=== PATIENT | male | born 1980 | race Caucasian/White ===

== ENCOUNTER 2018-12-22 10:35 | Inpatient (IN) | payer OTHER ==
[2018-12-22 11:13] VITALS: BMI 18.3
--- NOTE | 2018-12-22 12:42 | HP ---
CIWA Score Nausea/Vomitin-Mild Nausea/No Vomiting Muscle Tremors: 2 Anxiety: 1-Mildly Anxious Agitation: 3 Paroxysmal Sweats: 1-Minimal Palms Moist Orientation: 0-Oriented Tacttile Disturbances: 3-Moderate Itch/Numb/Burn Auditory Disturbances: 0-None Visual Disturbances: 0-None Headache: 2-Mild CIWA-Ar Total Score: 13 - Admission Criteria OASAS Guidelines: Admission for Medically Managed Detox: Requires at least one of the followin. CIWA greater than 12 2. Seizures within the past 24 hours 3. Delirium tremens within the past 24 hours 4. Hallucinations within the past 24 hours 5. Acute intervention needed for co occurring medical disorder 6. Acute intervention needed for co occurring psychiatric disorder 7. Severe withdrawal that cannot be handled at a lower level of care (continued vomiting, continued diarrhea, abnormal vital signs) requiring intravenous medication and/or fluids 8. Admission ROS [facility] Chief Complaint: detox from etoh Allergies/Adverse Reactions: Allergies Allergy/AdvReac Type Severity Reaction Status Date / Time No Known Allergies Allergy Verified 12/22/18 11:07 History of Present Illness: Mr. Fink is a 38yo male with PMH of myocarditis, neuropathy, and AUD who presents for detox from alcohol. He reports drinking 2 gallons of vodka a week since 2014 after father . He reports hx of blackouts, denies seizures , 7am last drink today. He has been to detox twice, last being a little over a year ago. 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 denies: Diarrhea, Vomiting : reports: No Symptoms Reported Musculoskeletal: reports: No Symptoms Reported Integumentary: reports: No Symptoms Reported Neuro: reports: Headache. denies: Dizziness Endocrine: reports: No Symptoms Reported Hematology: reports: No Symptoms Reported Psychiatric: reports: Judgement Intact, Mood/Affect Appropiate, Orientated x3 Patient History - Patient Medical History Hx Anemia: No Hx Asthma: No Hx Cardiac Disorders: Yes (myocarditis 2004) Hx Congestive Heart Failure: No Hx Hypertension: No Hx Hypercholesterolemia: No Hx Diabetes: No Hx Human Immunodeficiency Virus (HIV): No Hx Depression: No - Patient Surgical History Past Surgical History: Yes Hx Cardiac Surgery: Yes (LVAD placement and removal 2004) - Smoking Cessation Smoking history: Current every day smoker Have you smoked in the past 12 months: Yes Cigars Per Day: 5 Initiated information on smoking cessation: Yes 'Breaking Loose' booklet given: 12/22/18 - Substances abused Alcohol Substance route: Oral Frequency: Daily Amount used: 1/2 gallon vodka Age of first use: 17 Date of last use: 12/22/18 Family Disease History - Family Disease History Family History: Denies Admission Physical Exam [facility] - Vital Signs Vital Signs: Vital Signs - 24 hr 12/22/18 12/22/18 11:02 11:46 Temperature 98.0 F 98.0 F Pulse Rate 98 H 98 H Respiratory 20 20 Rate Blood Pressure 128/93 128/93 - Physical General Appearance: Yes: No Apparent Distress, Alcohol on Breath HEENTM: Yes: Hearing grossly Normal, Normocephalic, MICA Respiratory: Yes: Lungs Clear, No Respiratory Distress Neck: Yes: Within Normal Limits Cardiology: Yes: Regular Rhythm, Regular Rate. No: Murmur Abdominal: Yes: Normal Bowel Sounds, Non Tender Back: Yes: Normal Inspection Musculoskeletal: Yes: full range of Motion Extremities: Yes: Normal Range of Motion Neurological: Yes: park superintendent II-XII NML intact, Fully Oriented, Alert, Motor Strength 5/5, Normal Mood/Affect Integumentary: Yes: Within Normal Limits - Diagnostic (1) History of myocarditis Current Visit: Yes Status: Resolved (2) Alcohol use disorder Current Visit: Yes Status: Chronic (3) Neuropathy Current Visit: Yes Status: Acute Cleared for Admission [facility] - Detox or Rehab [facility] Level of Care: Medically Managed Breathalyzer - Breathalyzer Breathalyzer: 0.220 Urine Drug Screen - Test Device Lot number: [id number] Expiration date: 09/29/20 - Control Is test valid?: Yes - Results Drug screen NEGATIVE: Yes Inpatient Rehab Admission - Rehab Decision to Admit Inpatient rehab admission?: No
[2018-12-22] MEDS ORDERED: MENTHOL/PHENOL 1 EACH UD MM PRN (13:15)
[2018-12-22] MEDS ORDERED: NICOTINE POLACRILEX 2 MG GUM BUC PRN (13:15)
[2018-12-22] MEDS ORDERED: ACETAMINOPHEN 325 MG TABLET (FP) PO PRN ×2 (13:15)
[2018-12-22] MEDS ORDERED: MAGNESIUM HYDROX 2400MG/30ML ORAL SUSPENSION 30 ML CUP PO PRN (13:15)
[2018-12-22] MEDS ORDERED: MAGNESIUM CITRATE 300 ML BOTTLE PO PRN (13:15)
[2018-12-22] MEDS ORDERED: ONDANSETRON *ODT* 4 MG TABLET SL PRN (13:15)
[2018-12-22] MEDS ORDERED: chlordiazePOXIDE HCL 25 MG CAPSULE PO PRN (13:15)
[2018-12-22] MEDS ORDERED: IBUPROFEN 400 MG TABLET (FP) PO PRN (13:15)
[2018-12-22] MEDS ORDERED: BISMUTH SUBSALICYLATE 262 MG/15 ML BTL PO PRN (13:15)
[2018-12-22] MEDS ORDERED: hydrOXYzine PAMOATE 25 MG CAPSULE (FP) PO PRN (13:15)
[2018-12-22] MEDS ORDERED: MAG HYDROX/AL HYDROX/SIMETH 30 ML UNIT-DOSE CUP PO PRN (13:15)
--- NOTE | 2018-12-22 13:42 | PN ---
Teaching Attending Note Name of Resident: Valorie Kang ATTENDING PHYSICIAN STATEMENT I saw and evaluated the patient. I reviewed the resident's note and discussed the case with the resident. I agree with the resident's findings and plan as documented. SUBJECTIVE: this 38 years old male with alcohol dependence,history of myocarditis ,had heart surgery in 2004,admitted at [facility], on waiting list for heart transplantation but fully recover,last detox [facility] [place] in 2015,last seen in [facility] last night OBJECTIVE: withdrawal signs and symptom Vital Signs Temperature 98.0 F 12/22/18 11:46 Pulse Rate 98 H 12/22/18 11:46 Respiratory Rate 20 12/22/18 11:46 Blood Pressure 128/93 12/22/18 11:46 O2 Sat by Pulse Oximetry (%) ASSESSMENT AND PLAN: this patient need inpatient detox from alcohol,medically managed detox,librium regimen,plan for rehab after detox
[2018-12-22] MEDS ORDERED: chlordiazePOXIDE HCL 25 MG CAPSULE PO ONE (14:20)
[2018-12-22] MEDS: metoPROLOL SUCCINATE 25 MG TAB.SR.24H (FP) PO SCH (14:44)
[2018-12-22] MEDS: PANTOPRAZOLE 20 MG TABLET (FP) PO SCH (14:45)
[2018-12-22 17:02] LABS: HEMATOCRIT 47.1 % (35.4-49); HEMOGLOBIN 15.6 GM/dL (11.7-16.9); MCH 33.5 pg (25.7-33.7); MCHC 33.1 g/dl (32.0-35.9); MEAN CELL VOLUME 101.3 fl (80-96); PLATELET COUNT 269 K/MM3 (134-434); RBC 4.65 M/mm3 (4.00-5.60); RDW 14.7 % (11.9-15.9); WHITE BLOOD COUNT 2.7 K/mm3 (4.0-10.0)
[2018-12-22 17:21] LABS: ALBUMIN 4.5 g/dl (3.4-5.0); BILIRUBIN,TOTAL 1.6 mg/dL (0.2-1); BLOOD UREA NITROGEN 6.5 mg/dL (7-18); CALCIUM 9.5 mg/dL (8.5-10.1); TOT PROT 7.8 g/dl (6.4-8.2)
[2018-12-22] MEDS: chlordiazePOXIDE HCL 25 MG CAPSULE PO SCH ×2 (17:38→23:35)
[2018-12-22] MEDS: THIAMINE HCL 100 MG TABLET (FP) PO SCH (23:35)
[2018-12-23] MEDS: chlordiazePOXIDE HCL 25 MG CAPSULE PO SCH ×2 (05:55→10:29)
[2018-12-23] MEDS: PRENATAL VITAMINS W/ FOLIC ACID TABLET (FP) PO SCH (10:28)
[2018-12-23] MEDS: PANTOPRAZOLE 20 MG TABLET (FP) PO SCH (10:28)
[2018-12-23] MEDS: metoPROLOL SUCCINATE 25 MG TAB.SR.24H (FP) PO SCH (10:28)
--- NOTE | 2018-12-23 14:52 | PN ---
[facility] CIWA - CIWA Score Nausea/Vomitin-No Nausea/No Vomiting Muscle Tremors: 2 Anxiety: 3 Agitation: 2 Paroxysmal Sweats: 3 Orientation: 0-Oriented Tacttile Disturbances: 1-Very Mild Itch/Numbness Auditory Disturbances: 0-None Visual Disturbances: 3-Moderate Sensitivity Headache: 0-None Present CIWA-Ar Total Score: 14 S Progress Note (SOAP) Subjective: Anxious, sweating, Fatigue, Tremors. Objective: PATIENT A & O X 3, OBSERVED AMBULATING ON UNIT UNASSISTED. IN NO ACUTE DISTRESS. 12/23/18 14:52 Vital Signs Temperature 95.9 F L 12/23/18 13:10 Pulse Rate 97 H 12/23/18 13:10 Respiratory Rate 16 12/23/18 13:10 Blood Pressure 136/94 12/23/18 13:10 O2 Sat by Pulse Oximetry (%) Laboratory Tests 12/22/18 12/22/18 12/22/18 14:00 14:00 14:00 WBC 2.7 L RBC 4.65 Hgb 15.6 Hct 47.1 MCV 101.3 H MCH 33.5 MCHC 33.1 RDW 14.7 Plt Count 269 MPV 8.0 Sodium 142 Potassium 4.0 Chloride 100 Carbon Dioxide 32 Anion Gap 10 BUN 6.5 L Creatinine 1.0 Est GFR (CKD-EPI)AfAm 110.94 Est GFR (CKD-EPI)NonAf 95.72 Random Glucose 81 Calcium 9.5 Total Bilirubin 1.6 H AST 365 H ALT 205 H Alkaline Phosphatase 86 Total Protein 7.8 Albumin 4.5 RPR Titer Nonreactive HIV 1&2 Ag/Ab, 4th Gen 12/22/18 14:00 WBC RBC Hgb Hct MCV MCH MCHC RDW Plt Count MPV Sodium Potassium Chloride Carbon Dioxide Anion Gap BUN Creatinine Est GFR (CKD-EPI)AfAm Est GFR (CKD-EPI)NonAf Random Glucose Calcium Total Bilirubin AST ALT Alkaline Phosphatase Total Protein Albumin RPR Titer HIV 1&2 Ag/Ab, 4th Gen Non reactive LABS NOTED. RESULTS OF DETOX ADMISSION QFT /TB TEST PENDING. 12/23/18 14:59 Assessment: 12/23/18 14:56 WITHDRAWAL SYMPTOMS. ELEVATED AST LEVELS. ELEVATED ALT LEVEL. HYPERBILIRUBINEMIA. Plan: CONTINUE DETOX. INCREASE DAILY PO WATER INTAKE. DUE TO SIGNIFICANTLY ELEVATED AST AND ALT LEVELS NOTED NO DETOX [facility] ASSESSMENT, CHANGE FROM LIBRIUM DETOX MEDICATION PROTOCOL TO ATIVAN DETOX MEDICATION PROTOCOL. HFP ORDERED FOR TOMORROW AM TO SEE IF ANY CHANGE IN AST AND ALT LEVELS AND IN TOTAL BILIRUBIN LEVEL.
[2018-12-23] MEDS ORDERED: LORazepam 1 MG TABLET PO PRN (14:54)
[2018-12-23] MEDS: LORazepam 2 MG TABLET PO SCH ×2 (18:02→22:32)
[2018-12-23] MEDS: MELATONIN 5 MG TABLETS PO PRN (22:32)
[2018-12-23] MEDS: THIAMINE HCL 100 MG TABLET (FP) PO SCH (22:32)
[2018-12-24] MEDS ORDERED: chlordiazePOXIDE HCL 25 MG CAPSULE PO SCH (05:00)
[2018-12-24] MEDS: LORazepam 2 MG TABLET PO SCH ×4 (06:06→22:28)
[2018-12-24 09:41] LABS: ALBUMIN 3.5 g/dl (3.4-5.0); BILIRUBIN,DIRECT 0.6 mg/dL (0.0-0.2); BILIRUBIN,TOTAL 2.8 mg/dL (0.2-1)
[2018-12-24] MEDS: metoPROLOL SUCCINATE 25 MG TAB.SR.24H (FP) PO SCH (10:39)
[2018-12-24] MEDS: PANTOPRAZOLE 20 MG TABLET (FP) PO SCH (10:39)
[2018-12-24] MEDS: PRENATAL VITAMINS W/ FOLIC ACID TABLET (FP) PO SCH (10:39)
--- NOTE | 2018-12-24 11:52 | PN ---
[facility] CIWA - CIWA Score Nausea/Vomitin-Mild Nausea/No Vomiting Muscle Tremors: 3 Anxiety: 3 Agitation: 3 Paroxysmal Sweats: 2 Orientation: 0-Oriented Tacttile Disturbances: 0-None Auditory Disturbances: 0-None Visual Disturbances: 0-None Headache: 0-None Present CIWA-Ar Total Score: 12 S Progress Note (SOAP) Subjective: 38 years old male admitted on 12/22/18 for acute alcohol withdrawal sx management doing well with ativan detox regimen due to ast elevation feeling dizziness when change position that 2004 had open heart surgery for endocarditis with unknow cause encourage change position slowly Objective: 12/24/18 11:54 Vital Signs Temperature 97.8 F 12/24/18 09:22 Pulse Rate 90 12/24/18 09:22 Respiratory Rate 20 12/24/18 09:22 Blood Pressure 96/69 12/24/18 09:22 O2 Sat by Pulse Oximetry (%) Laboratory Last Values WBC 2.7 K/mm3 (4.0-10.0) L 12/22/18 14:00 RBC 4.65 M/mm3 (4.00-5.60) 12/22/18 14:00 Hgb 15.6 GM/dL (11.7-16.9) 12/22/18 14:00 Hct 47.1 % (35.4-49) 12/22/18 14:00 MCV 101.3 fl (80-96) H 12/22/18 14:00 MCH 33.5 pg (25.7-33.7) 12/22/18 14:00 MCHC 33.1 g/dl (32.0-35.9) 12/22/18 14:00 RDW 14.7 % (11.9-15.9) 12/22/18 14:00 Plt Count 269 K/MM3 (134-434) 12/22/18 14:00 MPV 8.0 fl (7.5-11.1) 12/22/18 14:00 Sodium 142 mmol/L (136-145) 12/22/18 14:00 Potassium 4.0 mmol/L (3.5-5.1) 12/22/18 14:00 Chloride 100 mmol/L (98-107) 12/22/18 14:00 Carbon Dioxide 32 mmol/L (21-32) 12/22/18 14:00 Anion Gap 10 MMOL/L (8-16) 12/22/18 14:00 BUN 6.5 mg/dL (7-18) L 12/22/18 14:00 Creatinine 1.0 mg/dL (0.55-1.3) 12/22/18 14:00 Est GFR (CKD-EPI)AfAm 110.94 12/22/18 14:00 Est GFR (CKD-EPI)NonAf 95.72 12/22/18 14:00 Random Glucose 81 mg/dL (74-106) 12/22/18 14:00 Calcium 9.5 mg/dL (8.5-10.1) 12/22/18 14:00 Total Bilirubin 2.8 mg/dL (0.2-1) H 12/24/18 07:45 Direct Bilirubin 0.6 mg/dL (0.0-0.2) H 12/24/18 07:45 AST 184 U/L (15-37) H 12/24/18 07:45 ALT 139 U/L (13-61) H 12/24/18 07:45 Alkaline Phosphatase 67 U/L (45-117) 12/24/18 07:45 Total Protein 6.0 g/dl (6.4-8.2) L 12/24/18 07:45 Albumin 3.5 g/dl (3.4-5.0) 12/24/18 07:45 RPR Titer Nonreactive (NONREACTIVE) 12/22/18 14:00 HIV 1&2 Ag/Ab, 4th Gen Non reactive (Non Reactive) 12/22/18 14:00 lab noted low wbc ast elevation repeat 12/26/18 12/24/18 11:57 encourage oral fluid Assessment: 12/24/18 11:56 alcohol withdrawal sx Plan: continue ativan detox regimen
[2018-12-24] MEDS ORDERED: LORazepam 0.5 MG TABLET PO PRN (15:00)
[2018-12-24] MEDS: THIAMINE HCL 100 MG TABLET (FP) PO SCH (22:29)
[2018-12-24] MEDS: MELATONIN 5 MG TABLETS PO PRN (22:29)
[2018-12-25] MEDS ORDERED: chlordiazePOXIDE HCL 10 MG CAPSULE PO PRN
[2018-12-25] MEDS ORDERED: chlordiazePOXIDE HCL 10 MG CAPSULE PO SCH (05:00)
[2018-12-25] MEDS: LORazepam 1 MG TABLET PO SCH ×4 (06:12→22:05)
[2018-12-25] MEDS: PANTOPRAZOLE 20 MG TABLET (FP) PO SCH (10:38)
[2018-12-25] MEDS: metoPROLOL SUCCINATE 25 MG TAB.SR.24H (FP) PO SCH (10:38)
[2018-12-25] MEDS: PRENATAL VITAMINS W/ FOLIC ACID TABLET (FP) PO SCH (10:38)
--- NOTE | 2018-12-25 13:04 | EKG ---
Test Reason : Blood Pressure : / mmHG Vent. Rate : 089 BPM Atrial Rate : 089 BPM P-R Int : 160 ms QRS Dur : 104 ms QT Int : 376 ms P-R-T Axes : 079 -79 062 degrees QTc Int : 457 ms NORMAL SINUS RHYTHM BIATRIAL ENLARGEMENT LEFT ANTERIOR FASCICULAR BLOCK POSSIBLE INFERIOR INFARCT , AGE UNDETERMINED POSSIBLE ANTERIOR INFARCT , AGE UNDETERMINED ABNORMAL ECG NO PREVIOUS ECGS AVAILABLE Confirmed by CORIN MCCORMICK, NIRU ([id number]) on 12/25/2018 1:04:03 PM Referred By: Confirmed By:NIRU COOMBS MD
--- NOTE | 2018-12-25 13:34 | PN ---
S CIWA - CIWA Score Nausea/Vomitin-Mild Nausea/No Vomiting Muscle Tremors: 2 Anxiety: 1-Mildly Anxious Agitation: 1-Slight > Activity Paroxysmal Sweats: 1-Minimal Palms Moist Orientation: 1-Uncertain about Date Tacttile Disturbances: 0-None Auditory Disturbances: 0-None Visual Disturbances: 0-None Headache: 0-None Present CIWA-Ar Total Score: 7 [facility] Progress Note (SOAP) Subjective: pt without complaints, doing well with detox O: Vital Signs - 24 hr 12/24/18 12/24/18 12/24/18 13:54 17:40 21:44 Temperature 97.3 F L 98.9 F 98.4 F Pulse Rate 84 95 H 103 H Respiratory 18 6 L 18 Rate Blood Pressure 111/80 115/75 111/81 12/25/18 12/25/18 12/25/18 00:30 03:30 06:16 Temperature 98 F Pulse Rate 85 Respiratory 18 18 18 Rate Blood Pressure 109/74 12/25/18 09:22 Temperature 97.8 F Pulse Rate 80 Respiratory 18 Rate Blood Pressure 105/79 Laboratory Tests 12/22/18 12/22/18 12/22/18 14:00 14:00 14:00 WBC 2.7 L RBC 4.65 Hgb 15.6 Hct 47.1 MCV 101.3 H MCH 33.5 MCHC 33.1 RDW 14.7 Plt Count 269 MPV 8.0 Sodium 142 Potassium 4.0 Chloride 100 Carbon Dioxide 32 Anion Gap 10 BUN 6.5 L Creatinine 1.0 Est GFR (CKD-EPI)AfAm 110.94 Est GFR (CKD-EPI)NonAf 95.72 Random Glucose 81 Calcium 9.5 Total Bilirubin 1.6 H Direct Bilirubin AST 365 H ALT 205 H Alkaline Phosphatase 86 Total Protein 7.8 Albumin 4.5 RPR Titer Nonreactive HIV 1&2 Ag/Ab, 4th Gen 12/22/18 12/24/18 14:00 07:45 WBC RBC Hgb Hct MCV MCH MCHC RDW Plt Count MPV Sodium Potassium Chloride Carbon Dioxide Anion Gap BUN Creatinine Est GFR (CKD-EPI)AfAm Est GFR (CKD-EPI)NonAf Random Glucose Calcium Total Bilirubin 2.8 H Direct Bilirubin 0.6 H AST 184 H ALT 139 H Alkaline Phosphatase 67 Total Protein 6.0 L Albumin 3.5 RPR Titer HIV 1&2 Ag/Ab, 4th Gen Non reactive increased liver enzymes repeat pending alert and oriented a/p: continue with ativan detox- increased liver enzymes- monitor pt doing well
[2018-12-25] MEDS: THIAMINE HCL 100 MG TABLET (FP) PO SCH (22:05)
[2018-12-25] MEDS: CYCLOBENZAPRINE HCL 5 MG TABLET PO PRN (22:05)
[2018-12-26] MEDS ORDERED: chlordiazePOXIDE HCL 10 MG CAPSULE PO SCH (05:00)
[2018-12-26] MEDS: LORazepam 0.5 MG TABLET PO SCH ×4 (05:46→22:12)
[2018-12-26] MEDS: metoPROLOL SUCCINATE 25 MG TAB.SR.24H (FP) PO SCH (10:26)
[2018-12-26] MEDS: PANTOPRAZOLE 20 MG TABLET (FP) PO SCH (10:26)
[2018-12-26] MEDS: PRENATAL VITAMINS W/ FOLIC ACID TABLET (FP) PO SCH (10:26)
[2018-12-26 12:01] LABS: BASO % 0.5 % (0-2.0); EOS % 5.2 % (0-4.5); HEMATOCRIT 39.5 % (35.4-49); HEMOGLOBIN 13.1 GM/dL (11.7-16.9); LYMPH % 31.9 % (8-40); MCH 33.4 pg (25.7-33.7); MCHC 33.3 g/dl (32.0-35.9); MEAN CELL VOLUME 100.5 fl (80-96); MEAN PLT VOLUME 9.2 fl (7.5-11.1); MONO % 15.5 % (3.8-10.2); NEUT % 46.9 % (42.8-82.8); RBC 3.93 M/mm3 (4.00-5.60); RDW 14.2 % (11.9-15.9); WHITE BLOOD COUNT 4.7 K/mm3 (4.0-10.0)
[2018-12-26 12:18] LABS: PLATELET COUNT 196 K/MM3 (134-434)
--- NOTE | 2018-12-26 13:16 | PN ---
S CIWA - CIWA Score Nausea/Vomitin Muscle Tremors: 2 Anxiety: 2 Agitation: 2 Paroxysmal Sweats: 1-Minimal Palms Moist Orientation: 0-Oriented Tacttile Disturbances: 1-Very Mild Itch/Numbness Auditory Disturbances: 0-None Visual Disturbances: 0-None Headache: 1-Very Mild CIWA-Ar Total Score: 11 S Progress Note (SOAP) Subjective: alert,irritable,anxious,interrupted sleep Objective: 12/26/18 13:14 Vital Signs Temperature 97.0 F L 12/26/18 13:05 Pulse Rate 77 12/26/18 13:05 Respiratory Rate 18 12/26/18 13:05 Blood Pressure 113/84 12/26/18 13:05 O2 Sat by Pulse Oximetry (%) 12/26/18 13:15 Abnormal Lab Results 12/26/18 12/26/18 07:30 07:30 RBC 3.93 L MCV 100.5 H Monocytes % 15.5 H Eosinophils % 5.2 H AST 91 H Assessment: 12/26/18 13:15 withdrawal symptom Plan: continue detox,ensure plus 120 mls po bid,discharge in am
[2018-12-26 16:10] LABS: ANISOCYTOSIS 1+; MACROCYTOSIS 1+; PLATELET ESTIMATE NORMAL
[2018-12-26] MEDS: THIAMINE HCL 100 MG TABLET (FP) PO SCH (22:12)
[2018-12-26] MEDS: CYCLOBENZAPRINE HCL 5 MG TABLET PO PRN (22:12)
[2018-12-27] MEDS ORDERED: LORazepam 0.5 MG TABLET PO ONE (05:00)
[2018-12-27] MEDS ORDERED: chlordiazePOXIDE HCL 10 MG CAPSULE PO ONE (05:00)
[2018-12-27 09:25] VITALS: BP 128/88; PULSE 101; TEMP 97.8
[2018-12-27] MEDS: metoPROLOL SUCCINATE 25 MG TAB.SR.24H (FP) PO SCH (10:23)
[2018-12-27] MEDS: PANTOPRAZOLE 20 MG TABLET (FP) PO SCH (10:23)
[2018-12-27] MEDS: PRENATAL VITAMINS W/ FOLIC ACID TABLET (FP) PO SCH (10:23)
--- NOTE | 2018-12-27 12:54 | DS ---
[facility] Detox Discharge Summary Admission Date: 12/22/18 Discharge Date: 12/27/18 - History Present History: Alcohol Dependence Additional Comments: 38 years old male first patient [facility] admission for detox was admitted on 12/22/18 for acute alcohol withdrawal sx management doing well with ativan detox regimen no complication throughout the detox stay alert oriented x 3 speech clearly steady gait medical history of gerd hypertension and underweight denies dizziness no nausea no vomiting extremities full range of motion - Physical Exam Results Vital Signs: Vital Signs Temperature 97.8 F 12/27/18 09:24 Pulse Rate 101 H 12/27/18 09:24 Respiratory Rate 18 12/27/18 09:24 Blood Pressure 128/88 12/27/18 09:24 O2 Sat by Pulse Oximetry (%) Pertinent Admission Physical Exam Findings: alcohol withdrawal sx Laboratory Last Values WBC 4.7 K/mm3 (4.0-10.0) 12/26/18 07:30 RBC 3.93 M/mm3 (4.00-5.60) L 12/26/18 07:30 Hgb 13.1 GM/dL (11.7-16.9) 12/26/18 07:30 Hct 39.5 % (35.4-49) D 12/26/18 07:30 MCV 100.5 fl (80-96) H 12/26/18 07:30 MCH 33.4 pg (25.7-33.7) 12/26/18 07:30 MCHC 33.3 g/dl (32.0-35.9) 12/26/18 07:30 RDW 14.2 % (11.9-15.9) 12/26/18 07:30 Plt Count 196 K/MM3 (134-434) D 12/26/18 07:30 MPV 9.2 fl (7.5-11.1) D 12/26/18 07:30 Absolute Neuts (auto) 2.2 K/mm3 (1.5-8.0) 12/26/18 07:30 Neutrophils % 46.9 % (42.8-82.8) 12/26/18 07:30 Neutrophils % (Manual) 50.5 % (42.8-82.8) 12/26/18 07:30 Band Neutrophils % 1.0 % 12/26/18 07:30 Lymphocytes % 31.9 % (8-40) 12/26/18 07:30 Lymphocytes % (Manual) 29.3 % (8-40) 12/26/18 07:30 Monocytes % 15.5 % (3.8-10.2) H 12/26/18 07:30 Monocytes % (Manual) 15 % (3.8-10.2) H 12/26/18 07:30 Eosinophils % 5.2 % (0-4.5) H 12/26/18 07:30 Eosinophils % (Manual) 4.0 % (0-4.5) 12/26/18 07:30 Basophils % 0.5 % (0-2.0) 12/26/18 07:30 Basophils % (Manual) 0.0 % (0-2.0) 12/26/18 07:30 Myelocytes % (Man) 0 % (0-2) 12/26/18 07:30 Promyelocytes % (Man) 0 % (0-2) 12/26/18 07:30 Blast Cells % (Manual) 0 % (0-0) 12/26/18 07:30 Nucleated RBC % 0 % (0-0) 12/26/18 07:30 Metamyelocytes 0 % (0-2) 12/26/18 07:30 Hypochromia 0 12/26/18 07:30 Platelet Estimate Normal 12/26/18 07:30 Polychromasia 0 12/26/18 07:30 Poikilocytosis 0 12/26/18 07:30 Anisocytosis 1+ 12/26/18 07:30 Microcytosis 0 12/26/18 07:30 Macrocytosis 1+ 12/26/18 07:30 Sodium 142 mmol/L (136-145) 12/22/18 14:00 Potassium 4.0 mmol/L (3.5-5.1) 12/22/18 14:00 Chloride 100 mmol/L (98-107) 12/22/18 14:00 Carbon Dioxide 32 mmol/L (21-32) 12/22/18 14:00 Anion Gap 10 MMOL/L (8-16) 12/22/18 14:00 BUN 6.5 mg/dL (7-18) L 12/22/18 14:00 Creatinine 1.0 mg/dL (0.55-1.3) 12/22/18 14:00 Est GFR (CKD-EPI)AfAm 110.94 12/22/18 14:00 Est GFR (CKD-EPI)NonAf 95.72 12/22/18 14:00 Random Glucose 81 mg/dL (74-106) 12/22/18 14:00 Calcium 9.5 mg/dL (8.5-10.1) 12/22/18 14:00 Total Bilirubin 2.8 mg/dL (0.2-1) H 12/24/18 07:45 Direct Bilirubin 0.6 mg/dL (0.0-0.2) H 12/24/18 07:45 AST 91 U/L (15-37) H 12/26/18 07:30 ALT 139 U/L (13-61) H 12/24/18 07:45 Alkaline Phosphatase 67 U/L (45-117) 12/24/18 07:45 Total Protein 6.0 g/dl (6.4-8.2) L 12/24/18 07:45 Albumin 3.5 g/dl (3.4-5.0) 12/24/18 07:45 RPR Titer Nonreactive (NONREACTIVE) 12/22/18 14:00 HIV 1&2 Ag/Ab, 4th Gen Non reactive (Non Reactive) 12/22/18 14:00 TB (QFT) Incubation (.) 12/22/18 14:00 TB Test (QFT) Nil 0.26 IU/mL (.) 12/22/18 14:00 TB Test (QFT) Mitogen >10.00 IU/mL (.) 12/22/18 14:00 TB Test (QFT) Antigen 0.18 IU/mL (.) 12/22/18 14:00 TB Test (QFT) Negative (Negative) 12/22/18 14:00 TB Positive Criteria (.) 12/22/18 14:00 lab noted - Treatment Hospital Course: Detox Protocol Followed, Detoxed Safely, Responded well, Discharged Condition Good, Rehab Referral Accepted Patient has Accepted [facility] Referral [facility] - Medication Discharge Medications: Ambulatory Orders Cyclobenzaprine HCl 5 mg PO TID PRN 12/22/18 Metoprolol Succinate [Toprol Xl] 25 mg PO DAILY 12/22/18 Omeprazole 40 mg PO DAILY 12/22/18 - Diagnosis (1) Hypertension Status: Chronic Qualifiers: Hypertension type: essential hypertension Qualified Code(s): I10 - Essential (primary) hypertension (2) GERD (gastroesophageal reflux disease) Status: Chronic Qualifiers: Esophagitis presence: without esophagitis Qualified Code(s): K21.9 - Gastro -esophageal reflux disease without esophagitis (3) Underweight Status: Chronic (4) Alcohol use disorder Status: Acute - AMA Did Patient Leave Against Medical Advice: No CIWA Score - CIWA Score Nausea/Vomitin-Mild Nausea/No Vomiting Muscle Tremors: 1-None Visible, but [place] Anxiety: 1-Mildly Anxious Agitation: 1-Slight > Activity Paroxysmal Sweats: 1-Minimal Palms Moist Orientation: 0-Oriented Tacttile Disturbances: 0-None Auditory Disturbances: 0-None Visual Disturbances: 0-None Headache: 1-Very Mild CIWA-Ar Total Score: 6
== END 2018-12-27 12:24 | disposition other institution (70) | DRG 775 ==
LOC: YASAS 10:35 → Y3N 14:01
PROVIDERS: ADMIT Surgery; ATTEND Surgery
PROC: HZ2ZZZZ Detoxification Services for Substance Abuse Treatment (ICD-10-PCS; principal; 2018-12-22)
DX: F10.230 Alcohol dependence with withdrawal, uncomplicated (principal); I10 Essential (primary) hypertension; K21.9 Gastro-esophageal reflux disease without esophagitis; R74.0 Nonspecific elevation of levels of transaminase and lactic acid dehydrogenase [LDH]; E80.6 Other disorders of bilirubin metabolism; G62.9 Polyneuropathy, unspecified; Z86.79 Personal history of other diseases of the circulatory system
CPT/HCPCS: 36415; 80053; 80076; 84450; 85025; 85027; 86480; 86593; 87389; 93005; 93010

== ENCOUNTER 2018-12-27 12:28 | Inpatient (IN) | payer OTHER ==
[2018-12-27] MEDS ORDERED: ACETAMINOPHEN 325 MG TABLET (FP) PO PRN (13:03)
[2018-12-27] MEDS ORDERED: MAGNESIUM HYDROX 2400MG/30ML ORAL SUSPENSION 30 ML CUP PO PRN (13:03)
[2018-12-27] MEDS ORDERED: NICOTINE POLACRILEX 2 MG GUM BC PRN (13:03)
[2018-12-27] MEDS ORDERED: guaiFENesin 200 MG/10 ML 10 ML UNIT-DOSE CUPS PO PRN (13:03)
[2018-12-27] MEDS ORDERED: NICOTINE 14 MG/24 HOURS TOPICAL PATCH TD PRN (13:03)
[2018-12-27] MEDS ORDERED: MENTHOL/PHENOL 1 EACH UD MM PRN (13:03)
[2018-12-27] MEDS ORDERED: MAGNESIUM CITRATE 300 ML BOTTLE PO PRN (13:03)
[2018-12-27] MEDS ORDERED: P-EPHED 60MG/TRIPROLIDI 2.5MG TABLET PO PRN (13:03)
[2018-12-27] MEDS ORDERED: IBUPROFEN 400 MG TABLET (FP) PO PRN (13:03)
[2018-12-27] MEDS ORDERED: MAG HYDROX/AL HYDROX/SIMETH 30 ML UNIT-DOSE CUP PO PRN (13:03)
[2018-12-27] MEDS ORDERED: LOPERAMIDE HCL 2 MG CAPSULE PO PRN (13:03)
--- NOTE | 2018-12-27 13:03 | HP ---
[facility]ALDE[facility] MCCORMICK Rehab Assess/Revision - Admission History Admitted to Rehab from: [facility] Date of Admission to Rehab: 12/27/18 - Findings Detox History & Physical reviewed: Yes Concur with findings: Yes Comments/Additional Findings: transferred from detox to rehab admission as per protocol Inpatient Rehab Admission - Rehab Decision to Admit Inpatient rehab admission?: Yes - Initial Determination Are CD services needed?: Yes Free of communicable disease: Yes Not in need of hospitalization: Yes - Rehab Admission Criteria Previous failed treatment: Yes Poor recovery environment: Yes Comorbidities: Yes Lacks judgement: No Patient is meeting Inpatient Rehab admission criteria:: Yes
[2018-12-27] MEDS: hydrOXYzine PAMOATE 25 MG CAPSULE (FP) PO PRN (19:06)
[2018-12-27] MEDS: METHOCARBAMOL 500 MG TABLET PO PRN (19:06)
[2018-12-27] MEDS: MELATONIN 5 MG TABLETS PO PRN (21:16)
[2018-12-27] MEDS: THIAMINE HCL 100 MG TABLET (FP) PO SCH (21:16)
[2018-12-28] MEDS: METHOCARBAMOL 500 MG TABLET PO PRN ×3 (02:01→14:43)
[2018-12-28] MEDS: hydrOXYzine PAMOATE 25 MG CAPSULE (FP) PO PRN ×4 (02:01→21:46)
[2018-12-28] MEDS: metoPROLOL SUCCINATE 25 MG TAB.SR.24H (FP) PO SCH (09:54)
[2018-12-28] MEDS: PRENATAL VITAMINS W/ FOLIC ACID TABLET (FP) PO SCH (09:54)
[2018-12-28] MEDS: RANITIDINE HCL 150 MG TABLET (FP) PO SCH ×2 (09:54→21:39)
[2018-12-28] MEDS: MELATONIN 5 MG TABLETS PO PRN (21:39)
[2018-12-28] MEDS: THIAMINE HCL 100 MG TABLET (FP) PO SCH (21:39)
[2018-12-29] MEDS: hydrOXYzine PAMOATE 25 MG CAPSULE (FP) PO PRN (06:32)
[2018-12-29] MEDS: METHOCARBAMOL 500 MG TABLET PO PRN ×2 (06:32→14:01)
[2018-12-29] MEDS: PRENATAL VITAMINS W/ FOLIC ACID TABLET (FP) PO SCH (09:51)
[2018-12-29] MEDS: metoPROLOL SUCCINATE 25 MG TAB.SR.24H (FP) PO SCH (09:51)
[2018-12-29] MEDS: RANITIDINE HCL 150 MG TABLET (FP) PO SCH ×2 (09:51→21:18)
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
[2018-12-29] MEDS: hydrOXYzine PAMOATE 50 MG CAPSULE (FP) PO PRN ×3 (14:04→22:28)
[2018-12-29] MEDS: THIAMINE HCL 100 MG TABLET (FP) PO SCH (21:18)
[2018-12-29] MEDS: MELATONIN 5 MG TABLETS PO PRN (21:18)
[2018-12-29] MEDS ORDERED: SUVOREXANT 10 MG TABLET PO PRN (22:00)
[2018-12-30] MEDS: hydrOXYzine PAMOATE 50 MG CAPSULE (FP) PO PRN ×4 (05:55→21:04)
[2018-12-30] MEDS: RANITIDINE HCL 150 MG TABLET (FP) PO SCH ×2 (09:40→21:03)
[2018-12-30] MEDS: PRENATAL VITAMINS W/ FOLIC ACID TABLET (FP) PO SCH (09:40)
[2018-12-30] MEDS: metoPROLOL SUCCINATE 25 MG TAB.SR.24H (FP) PO SCH (09:40)
[2018-12-30] MEDS: METHOCARBAMOL 500 MG TABLET PO PRN ×2 (09:41→18:08)
[2018-12-30] MEDS: THIAMINE HCL 100 MG TABLET (FP) PO SCH (21:03)
[2018-12-30] MEDS: MELATONIN 5 MG TABLETS PO PRN (21:04)
[2018-12-31] MEDS: METHOCARBAMOL 500 MG TABLET PO PRN ×3 (06:12→21:22)
[2018-12-31] MEDS: hydrOXYzine PAMOATE 50 MG CAPSULE (FP) PO PRN ×4 (06:12→21:23)
[2018-12-31] MEDS: RANITIDINE HCL 150 MG TABLET (FP) PO SCH ×2 (10:22→21:21)
[2018-12-31] MEDS: metoPROLOL SUCCINATE 25 MG TAB.SR.24H (FP) PO SCH (10:22)
[2018-12-31] MEDS: PRENATAL VITAMINS W/ FOLIC ACID TABLET (FP) PO SCH (10:22)
[2018-12-31] MEDS: THIAMINE HCL 100 MG TABLET (FP) PO SCH (21:21)
[2019-01-01] MEDS: hydrOXYzine PAMOATE 50 MG CAPSULE (FP) PO PRN ×3 (08:47→21:17)
[2019-01-01] MEDS: METHOCARBAMOL 500 MG TABLET PO PRN ×2 (10:04→21:17)
[2019-01-01] MEDS: PRENATAL VITAMINS W/ FOLIC ACID TABLET (FP) PO SCH (10:04)
[2019-01-01] MEDS: metoPROLOL SUCCINATE 25 MG TAB.SR.24H (FP) PO SCH (10:04)
[2019-01-01] MEDS: RANITIDINE HCL 150 MG TABLET (FP) PO SCH ×2 (10:05→21:15)
[2019-01-01] MEDS: THIAMINE HCL 100 MG TABLET (FP) PO SCH (21:15)
[2019-01-01] MEDS: SUVOREXANT 10 MG TABLET PO PRN (22:35)
[2019-01-02] MEDS: METHOCARBAMOL 500 MG TABLET PO PRN ×2 (09:48→17:36)
[2019-01-02] MEDS: PRENATAL VITAMINS W/ FOLIC ACID TABLET (FP) PO SCH (09:48)
[2019-01-02] MEDS: RANITIDINE HCL 150 MG TABLET (FP) PO SCH ×2 (09:48→21:32)
[2019-01-02] MEDS: hydrOXYzine PAMOATE 50 MG CAPSULE (FP) PO PRN ×3 (09:48→21:32)
[2019-01-02] MEDS: metoPROLOL SUCCINATE 25 MG TAB.SR.24H (FP) PO SCH (09:48)
[2019-01-02] MEDS: THIAMINE HCL 100 MG TABLET (FP) PO SCH (21:32)
[2019-01-02] MEDS: SUVOREXANT 10 MG TABLET PO PRN (22:43)
[2019-01-03] MEDS: hydrOXYzine PAMOATE 50 MG CAPSULE (FP) PO PRN ×3 (09:49→21:12)
[2019-01-03] MEDS: metoPROLOL SUCCINATE 25 MG TAB.SR.24H (FP) PO SCH (09:49)
[2019-01-03] MEDS: RANITIDINE HCL 150 MG TABLET (FP) PO SCH ×2 (09:49→21:11)
[2019-01-03] MEDS: METHOCARBAMOL 500 MG TABLET PO PRN ×3 (09:49→21:12)
[2019-01-03] MEDS: PRENATAL VITAMINS W/ FOLIC ACID TABLET (FP) PO SCH (09:49)
[2019-01-03] MEDS: THIAMINE HCL 100 MG TABLET (FP) PO SCH (21:11)
[2019-01-03] MEDS: SUVOREXANT 10 MG TABLET PO PRN (22:44)
[2019-01-04] MEDS: RANITIDINE HCL 150 MG TABLET (FP) PO SCH ×2 (09:40→21:14)
[2019-01-04] MEDS: hydrOXYzine PAMOATE 50 MG CAPSULE (FP) PO PRN ×2 (09:40→15:49)
[2019-01-04] MEDS: PRENATAL VITAMINS W/ FOLIC ACID TABLET (FP) PO SCH (09:40)
[2019-01-04] MEDS: metoPROLOL SUCCINATE 25 MG TAB.SR.24H (FP) PO SCH (09:40)
[2019-01-04] MEDS: METHOCARBAMOL 500 MG TABLET PO PRN (09:41)
[2019-01-04] MEDS: THIAMINE HCL 100 MG TABLET (FP) PO SCH (21:14)
[2019-01-04] MEDS: MELATONIN 5 MG TABLETS PO PRN (21:14)
[2019-01-04] MEDS ORDERED: SUVOREXANT 10 MG TABLET PO PRN (22:00)
[2019-01-05] MEDS: hydrOXYzine PAMOATE 50 MG CAPSULE (FP) PO PRN ×2 (09:56→18:16)
[2019-01-05] MEDS: METHOCARBAMOL 500 MG TABLET PO PRN (09:56)
[2019-01-05] MEDS: PRENATAL VITAMINS W/ FOLIC ACID TABLET (FP) PO SCH (09:56)
[2019-01-05] MEDS: metoPROLOL SUCCINATE 25 MG TAB.SR.24H (FP) PO SCH (09:56)
[2019-01-05] MEDS: RANITIDINE HCL 150 MG TABLET (FP) PO SCH ×2 (09:56→21:10)
[2019-01-05] MEDS: THIAMINE HCL 100 MG TABLET (FP) PO SCH (21:10)
[2019-01-06] MEDS: PRENATAL VITAMINS W/ FOLIC ACID TABLET (FP) PO SCH (10:04)
[2019-01-06] MEDS: hydrOXYzine PAMOATE 50 MG CAPSULE (FP) PO PRN (10:05)
[2019-01-06] MEDS: METHOCARBAMOL 500 MG TABLET PO PRN (10:05)
[2019-01-06] MEDS: RANITIDINE HCL 150 MG TABLET (FP) PO SCH ×2 (12:48→21:30)
[2019-01-06] MEDS: metoPROLOL SUCCINATE 25 MG TAB.SR.24H (FP) PO SCH (12:48)
[2019-01-06] MEDS: THIAMINE HCL 100 MG TABLET (FP) PO SCH (21:30)
[2019-01-07] MEDS ORDERED: SUVOREXANT 10 MG TABLET PO PRN (08:37)
[2019-01-07] MEDS: PRENATAL VITAMINS W/ FOLIC ACID TABLET (FP) PO SCH (09:31)
[2019-01-07] MEDS: metoPROLOL SUCCINATE 25 MG TAB.SR.24H (FP) PO SCH (09:31)
[2019-01-07] MEDS: RANITIDINE HCL 150 MG TABLET (FP) PO SCH ×2 (09:31→21:17)
[2019-01-07] MEDS: hydrOXYzine PAMOATE 50 MG CAPSULE (FP) PO PRN (09:32)
[2019-01-07] MEDS: METHOCARBAMOL 500 MG TABLET PO PRN (09:32)
[2019-01-07] MEDS: THIAMINE HCL 100 MG TABLET (FP) PO SCH (21:17)
[2019-01-08] MEDS ORDERED: PT OWN MED DRAWER 7, Y5N ONE ×2 (08:51→09:45)
[2019-01-08] MEDS: METHOCARBAMOL 500 MG TABLET PO PRN ×2 (09:57→21:22)
[2019-01-08] MEDS: hydrOXYzine PAMOATE 50 MG CAPSULE (FP) PO PRN ×2 (09:57→21:21)
[2019-01-08] MEDS: metoPROLOL SUCCINATE 25 MG TAB.SR.24H (FP) PO SCH (09:57)
[2019-01-08] MEDS: PRENATAL VITAMINS W/ FOLIC ACID TABLET (FP) PO SCH (09:57)
[2019-01-08] MEDS: RANITIDINE HCL 150 MG TABLET (FP) PO SCH ×2 (09:57→21:20)
[2019-01-08] MEDS: THIAMINE HCL 100 MG TABLET (FP) PO SCH (21:20)
[2019-01-09] MEDS: metoPROLOL SUCCINATE 25 MG TAB.SR.24H (FP) PO SCH (09:56)
[2019-01-09] MEDS: hydrOXYzine PAMOATE 50 MG CAPSULE (FP) PO PRN ×2 (09:56→15:39)
[2019-01-09] MEDS: RANITIDINE HCL 150 MG TABLET (FP) PO SCH ×2 (09:56→21:20)
[2019-01-09] MEDS: PRENATAL VITAMINS W/ FOLIC ACID TABLET (FP) PO SCH (09:56)
[2019-01-09] MEDS: METHOCARBAMOL 500 MG TABLET PO PRN (09:56)
[2019-01-09] MEDS: THIAMINE HCL 100 MG TABLET (FP) PO SCH (21:20)
[2019-01-10] MEDS: hydrOXYzine PAMOATE 50 MG CAPSULE (FP) PO PRN ×2 (10:03→21:52)
[2019-01-10] MEDS: RANITIDINE HCL 150 MG TABLET (FP) PO SCH ×2 (10:03→21:52)
[2019-01-10] MEDS: PRENATAL VITAMINS W/ FOLIC ACID TABLET (FP) PO SCH (10:03)
[2019-01-10] MEDS: METHOCARBAMOL 500 MG TABLET PO PRN (10:03)
[2019-01-10] MEDS: metoPROLOL SUCCINATE 25 MG TAB.SR.24H (FP) PO SCH (10:03)
[2019-01-10] MEDS: THIAMINE HCL 100 MG TABLET (FP) PO SCH (21:52)
[2019-01-10] MEDS ORDERED: SUVOREXANT 10 MG TABLET PO PRN (22:00)
[2019-01-11] MEDS: hydrOXYzine PAMOATE 50 MG CAPSULE (FP) PO PRN ×3 (10:24→21:25)
[2019-01-11] MEDS: RANITIDINE HCL 150 MG TABLET (FP) PO SCH ×2 (10:24→21:25)
[2019-01-11] MEDS: PRENATAL VITAMINS W/ FOLIC ACID TABLET (FP) PO SCH (10:24)
[2019-01-11] MEDS: metoPROLOL SUCCINATE 25 MG TAB.SR.24H (FP) PO SCH (10:24)
[2019-01-11] MEDS: METHOCARBAMOL 500 MG TABLET PO PRN (10:24)
[2019-01-11] MEDS: THIAMINE HCL 100 MG TABLET (FP) PO SCH (21:25)
[2019-01-12] MEDS: metoPROLOL SUCCINATE 25 MG TAB.SR.24H (FP) PO SCH (09:55)
[2019-01-12] MEDS: RANITIDINE HCL 150 MG TABLET (FP) PO SCH ×2 (09:55→21:41)
[2019-01-12] MEDS: hydrOXYzine PAMOATE 50 MG CAPSULE (FP) PO PRN ×3 (09:55→21:42)
[2019-01-12] MEDS: PRENATAL VITAMINS W/ FOLIC ACID TABLET (FP) PO SCH (09:55)
[2019-01-12] MEDS: METHOCARBAMOL 500 MG TABLET PO PRN (09:55)
[2019-01-12] MEDS: THIAMINE HCL 100 MG TABLET (FP) PO SCH (21:41)
[2019-01-13] MEDS: metoPROLOL SUCCINATE 25 MG TAB.SR.24H (FP) PO SCH (09:55)
[2019-01-13] MEDS: RANITIDINE HCL 150 MG TABLET (FP) PO SCH ×2 (09:55→21:10)
[2019-01-13] MEDS: PRENATAL VITAMINS W/ FOLIC ACID TABLET (FP) PO SCH (09:55)
[2019-01-13] MEDS: METHOCARBAMOL 500 MG TABLET PO PRN ×2 (09:55→21:11)
[2019-01-13] MEDS: hydrOXYzine PAMOATE 50 MG CAPSULE (FP) PO PRN ×3 (09:55→21:11)
[2019-01-13] MEDS ORDERED: SUVOREXANT 10 MG TABLET PO PRN ×2 (18:13→22:00)
--- NOTE | 2019-01-13 18:13 | PN ---
[facility] Progress Note Note: Psychiatry Attending's note : Called for renewal of suvorexant. Chart reviewed. Dr Toney's note of 12/29/18 : Appreciated. Medication is well tolerated. No report of adverse effects. Improved sleep reported. Belsomra 10 mg po hs prn if insomnia. Resumed. See orders. Psychiatry will follow.
[2019-01-13] MEDS: MELATONIN 5 MG TABLETS PO PRN (21:10)
[2019-01-13] MEDS: THIAMINE HCL 100 MG TABLET (FP) PO SCH (21:10)
[2019-01-14] MEDS: hydrOXYzine PAMOATE 50 MG CAPSULE (FP) PO PRN ×3 (09:53→21:39)
[2019-01-14] MEDS: RANITIDINE HCL 150 MG TABLET (FP) PO SCH ×2 (09:53→21:38)
[2019-01-14] MEDS: METHOCARBAMOL 500 MG TABLET PO PRN (09:53)
[2019-01-14] MEDS: PRENATAL VITAMINS W/ FOLIC ACID TABLET (FP) PO SCH (09:53)
[2019-01-14] MEDS: metoPROLOL SUCCINATE 25 MG TAB.SR.24H (FP) PO SCH (09:53)
[2019-01-14] MEDS: THIAMINE HCL 100 MG TABLET (FP) PO SCH (21:38)
[2019-01-15] MEDS: PRENATAL VITAMINS W/ FOLIC ACID TABLET (FP) PO SCH (09:51)
[2019-01-15] MEDS: metoPROLOL SUCCINATE 25 MG TAB.SR.24H (FP) PO SCH (09:52)
[2019-01-15] MEDS: RANITIDINE HCL 150 MG TABLET (FP) PO SCH (09:52)
[2019-01-15] MEDS: METHOCARBAMOL 500 MG TABLET PO PRN (09:54)
[2019-01-15] MEDS: hydrOXYzine PAMOATE 50 MG CAPSULE (FP) PO PRN ×2 (09:54→21:16)
--- NOTE | 2019-01-15 10:12 | PN ---
[facility] Progress Note Note: Patient c/o heartburn and indigestion. Patient denies n/v/d, however reports hx of GERD and takes omeprazole at home. Vital Signs Temperature 97.9 F 01/15/19 06:58 Pulse Rate 92 H 01/15/19 09:30 Respiratory Rate 18 01/15/19 09:30 Blood Pressure 129/79 01/15/19 09:30 O2 Sat by Pulse Oximetry (%) pe alert and oriented x 3 skin warm and dry +perrla, eoms intact bl gi soft, nt, nd ext full rom,amb ad nisha A/P GERD Will d/c zantac start protonix 40mg daily monitor
[2019-01-15] MEDS ORDERED: PANTOPRAZOLE 40 MG TABLET (FP) PO SCH (10:15)
[2019-01-15] MEDS: THIAMINE HCL 100 MG TABLET (FP) PO SCH (21:15)
[2019-01-16] MEDS: metoPROLOL SUCCINATE 25 MG TAB.SR.24H (FP) PO SCH (10:01)
[2019-01-16] MEDS: PRENATAL VITAMINS W/ FOLIC ACID TABLET (FP) PO SCH (10:01)
[2019-01-16] MEDS: PANTOPRAZOLE 40 MG TABLET (FP) PO SCH (10:01)
[2019-01-16] MEDS: hydrOXYzine PAMOATE 50 MG CAPSULE (FP) PO PRN ×3 (10:02→21:36)
[2019-01-16] MEDS: METHOCARBAMOL 500 MG TABLET PO PRN (10:02)
[2019-01-16] MEDS: THIAMINE HCL 100 MG TABLET (FP) PO SCH (21:36)
[2019-01-16] MEDS ORDERED: SUVOREXANT 10 MG TABLET PO PRN (22:00)
[2019-01-17] MEDS: hydrOXYzine PAMOATE 50 MG CAPSULE (FP) PO PRN ×3 (10:28→22:51)
[2019-01-17] MEDS: PANTOPRAZOLE 40 MG TABLET (FP) PO SCH (10:28)
[2019-01-17] MEDS: METHOCARBAMOL 500 MG TABLET PO PRN (10:28)
[2019-01-17] MEDS: metoPROLOL SUCCINATE 25 MG TAB.SR.24H (FP) PO SCH (10:28)
[2019-01-17] MEDS: PRENATAL VITAMINS W/ FOLIC ACID TABLET (FP) PO SCH (10:28)
[2019-01-17] MEDS: THIAMINE HCL 100 MG TABLET (FP) PO SCH (21:37)
[2019-01-18] MEDS: METHOCARBAMOL 500 MG TABLET PO PRN (09:41)
[2019-01-18] MEDS: hydrOXYzine PAMOATE 50 MG CAPSULE (FP) PO PRN ×3 (09:41→21:18)
[2019-01-18] MEDS: PRENATAL VITAMINS W/ FOLIC ACID TABLET (FP) PO SCH (09:41)
[2019-01-18] MEDS: metoPROLOL SUCCINATE 25 MG TAB.SR.24H (FP) PO SCH (09:41)
[2019-01-18] MEDS: PANTOPRAZOLE 40 MG TABLET (FP) PO SCH (09:41)
[2019-01-18] MEDS ORDERED: PT OWN MED DRAWER 7, Y5N ONE (10:19)
[2019-01-18] MEDS: THIAMINE HCL 100 MG TABLET (FP) PO SCH (21:17)
[2019-01-19] MEDS: hydrOXYzine PAMOATE 50 MG CAPSULE (FP) PO PRN ×3 (09:54→21:35)
[2019-01-19] MEDS: PRENATAL VITAMINS W/ FOLIC ACID TABLET (FP) PO SCH (09:54)
[2019-01-19] MEDS: PANTOPRAZOLE 40 MG TABLET (FP) PO SCH (09:54)
[2019-01-19] MEDS: metoPROLOL SUCCINATE 25 MG TAB.SR.24H (FP) PO SCH (09:55)
[2019-01-19] MEDS: METHOCARBAMOL 500 MG TABLET PO PRN (09:55)
--- NOTE | 2019-01-19 14:10 | PN ---
S Progress Note Note: Psychiatry Attending's note : Called to renew order for suvorexant. No report of adverse effects. Well tolerated. Belsomra 10 mg po hs prn. Re-ordered.
[2019-01-19] MEDS: THIAMINE HCL 100 MG TABLET (FP) PO SCH (21:35)
[2019-01-20] MEDS: metoPROLOL SUCCINATE 25 MG TAB.SR.24H (FP) PO SCH (09:58)
[2019-01-20] MEDS: PRENATAL VITAMINS W/ FOLIC ACID TABLET (FP) PO SCH (09:58)
[2019-01-20] MEDS: PANTOPRAZOLE 40 MG TABLET (FP) PO SCH (09:58)
[2019-01-20] MEDS: METHOCARBAMOL 500 MG TABLET PO PRN (09:59)
[2019-01-20] MEDS: hydrOXYzine PAMOATE 50 MG CAPSULE (FP) PO PRN ×2 (09:59→21:12)
[2019-01-20 11:33] LABS: ALBUMIN 3.4 g/dl (3.4-5.0); BILIRUBIN,TOTAL 1.3 mg/dL (0.2-1); BLOOD UREA NITROGEN 17.8 mg/dL (7-18); CALCIUM 9.1 mg/dL (8.5-10.1); CREATININE 1.1 mg/dL (0.55-1.3); POTASSIUM 4.2 mmol/L (3.5-5.1); TOT PROT 6.1 g/dl (6.4-8.2)
[2019-01-20] MEDS: THIAMINE HCL 100 MG TABLET (FP) PO SCH (21:11)
[2019-01-20] MEDS: SUVOREXANT 10 MG TABLET PO PRN (22:39)
[2019-01-21] MEDS: PRENATAL VITAMINS W/ FOLIC ACID TABLET (FP) PO SCH (09:43)
[2019-01-21] MEDS: PANTOPRAZOLE 40 MG TABLET (FP) PO SCH (09:44)
[2019-01-21] MEDS: metoPROLOL SUCCINATE 25 MG TAB.SR.24H (FP) PO SCH (09:44)
[2019-01-21] MEDS: hydrOXYzine PAMOATE 50 MG CAPSULE (FP) PO PRN ×3 (09:45→21:37)
[2019-01-21] MEDS: METHOCARBAMOL 500 MG TABLET PO PRN (15:20)
[2019-01-21] MEDS: THIAMINE HCL 100 MG TABLET (FP) PO SCH (21:37)
[2019-01-21] MEDS: SUVOREXANT 10 MG TABLET PO PRN (23:01)
[2019-01-22] MEDS: PANTOPRAZOLE 40 MG TABLET (FP) PO SCH (09:51)
[2019-01-22] MEDS: metoPROLOL SUCCINATE 25 MG TAB.SR.24H (FP) PO SCH (09:51)
[2019-01-22] MEDS: METHOCARBAMOL 500 MG TABLET PO PRN (09:51)
[2019-01-22] MEDS: PRENATAL VITAMINS W/ FOLIC ACID TABLET (FP) PO SCH (09:51)
[2019-01-22] MEDS: hydrOXYzine PAMOATE 50 MG CAPSULE (FP) PO PRN ×3 (09:51→21:14)
[2019-01-22] MEDS: THIAMINE HCL 100 MG TABLET (FP) PO SCH (21:14)
[2019-01-22] MEDS: SUVOREXANT 10 MG TABLET PO PRN (23:07)
[2019-01-23] MEDS: PRENATAL VITAMINS W/ FOLIC ACID TABLET (FP) PO SCH (09:51)
[2019-01-23] MEDS: metoPROLOL SUCCINATE 25 MG TAB.SR.24H (FP) PO SCH (09:51)
[2019-01-23] MEDS: METHOCARBAMOL 500 MG TABLET PO PRN (09:51)
[2019-01-23] MEDS: hydrOXYzine PAMOATE 50 MG CAPSULE (FP) PO PRN ×3 (09:51→21:47)
[2019-01-23] MEDS: PANTOPRAZOLE 40 MG TABLET (FP) PO SCH (09:51)
--- NOTE | 2019-01-23 14:15 | DS ---
[facility] Rehab Discharge Summary - [facility] Rehab Discharge Summary Admission Date: 12/27/18 Discharge Date: 01/24/19 - History Present History: Alcohol dependence Pertinent Past History: History of Present Illness: Mr. Fink is a 38yo male with PMH of myocarditis, neuropathy, and AUD who presents for detox from alcohol. He reports drinking 2 gallons of vodka a week since 2014 after father . He reports hx of blackouts, denies seizures , 7am last drink today. He has been to detox twice, last being a little over a year ago. 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 - Discharge Physical Exam Vital Signs: Vital Signs Temperature 98.0 F 01/23/19 10:00 Pulse Rate 86 01/23/19 10:00 Respiratory Rate 18 01/23/19 10:00 Blood Pressure 114/76 01/23/19 10:00 O2 Sat by Pulse Oximetry (%) Pertinent Admission Physical Exam Findings: - Physical General Appearance: No Apparent Distress, HEENTM: Normocephalic, MICA Respiratory: Lungs Clear, Neck: supple Cardiology: S1 S2 Abdominal: + Bowel Sounds, Non Tender Musculoskeletal:full range of Motion, steady gait Neurological: outside cutter II-XII NML intact,Motor Strength 5/5, Integumentary: color consistent throughout trunk and extremities - Treatment Discharge Condition: Outpatient referral accepted (Patient is medically stable for discharge.Patient accepted referral to [facility]) Hospital Course: Patient was adherent to the treatment plan and the medication regimen. He met with his counselor and was seen by the psychiatric provider. He c/o GERD during his rehab and was treated effectively with protonix. He has not urgent or immediate medical needs and is medically stable for discharge. - Medication Discharge Medications: Ambulatory Orders Cyclobenzaprine HCl 5 mg PO TID PRN #90 tablet 01/23/19 Metoprolol Succinate [Toprol Xl] 25 mg PO DAILY #30 tab.er.24h 01/23/19 Omeprazole 40 mg PO DAILY #30 ashly. 01/23/19 - Medication-Assisted Treatment (MAT) Medication-Assisted Treatment (MAT): No - Discharge Instructions Diet, activity, other medical instructions: Diet: as tolerated Activity: as tolerated Other medical instructions: Please keep your aftercare appointment. Please keep your appointments with your medical provider and take your medications as prescribed. - Diagnosis (1) Alcohol dependence Status: Chronic Qualifiers: Substance use status: uncomplicated Qualified Code(s): F10.20 - Alcohol dependence, uncomplicated - Follow-up Referral Minutes to complete discharge: 20 - AMA Did Patient Leave Against Medical Advice: No
[2019-01-23] MEDS: THIAMINE HCL 100 MG TABLET (FP) PO SCH (21:46)
[2019-01-23] MEDS: SUVOREXANT 10 MG TABLET PO PRN (23:05)
[2019-01-24 06:48] VITALS: BP 106/76; PULSE 72; TEMP 98
[2019-01-24] MEDS: METHOCARBAMOL 500 MG TABLET PO PRN (09:05)
[2019-01-24] MEDS: PRENATAL VITAMINS W/ FOLIC ACID TABLET (FP) PO SCH (09:05)
[2019-01-24] MEDS: hydrOXYzine PAMOATE 50 MG CAPSULE (FP) PO PRN (09:05)
[2019-01-24] MEDS: metoPROLOL SUCCINATE 25 MG TAB.SR.24H (FP) PO SCH (09:05)
[2019-01-24] MEDS: PANTOPRAZOLE 40 MG TABLET (FP) PO SCH (09:05)
== END 2019-01-24 09:20 | disposition home or self-care (01) | DRG 772 ==
LOC: YASAS 12:28 → Y3W 12:29
PROVIDERS: ADMIT Neuromusculoskeletal Medicine & OMM; ATTEND Neuromusculoskeletal Medicine & OMM
PROC: HZ42ZZZ Group Counseling for Substance Abuse Treatment, Cognitive-Behavioral (ICD-10-PCS; principal; 2018-12-27)
DX: F10.20 Alcohol dependence, uncomplicated (principal); F10.280 Alcohol dependence with alcohol-induced anxiety disorder; F10.282 Alcohol dependence with alcohol-induced sleep disorder; F17.210 Nicotine dependence, cigarettes, uncomplicated; I10 Essential (primary) hypertension; K21.9 Gastro-esophageal reflux disease without esophagitis; G62.9 Polyneuropathy, unspecified; Z86.79 Personal history of other diseases of the circulatory system
CPT/HCPCS: 36415; 80053

== ENCOUNTER 2020-06-05 18:44 | Inpatient (IN) | payer OTHER ==
[2020-06-05 20:01] VITALS: BMI 22.5
[2020-06-05] MEDS ORDERED: BISMUTH SUBSALICYLATE 524 MG/30 ML UD PO PRN (21:07)
[2020-06-05] MEDS ORDERED: MAGNESIUM HYDROX 2400MG/30ML ORAL SUSPENSION 30 ML CUP PO PRN (21:07)
[2020-06-05] MEDS ORDERED: METHOCARBAMOL 500 MG TABLET PO PRN (21:07)
[2020-06-05] MEDS ORDERED: IBUPROFEN 400 MG TABLET (FP) PO PRN (21:07)
[2020-06-05] MEDS ORDERED: ACETAMINOPHEN 325 MG TABLET (FP) PO PRN ×2 (21:07)
[2020-06-05] MEDS ORDERED: MAGNESIUM CITRATE 300 ML BOTTLE PO PRN (21:07)
[2020-06-05] MEDS ORDERED: ONDANSETRON *ODT* 4 MG TABLET SL PRN (21:07)
[2020-06-05] MEDS ORDERED: MENTHOL/PHENOL 1 EACH UD MM PRN (21:07)
[2020-06-05] MEDS ORDERED: LORazepam 1 MG TABLET PO PRN (21:07)
[2020-06-05] MEDS ORDERED: MAG HYDROX/AL HYDROX/SIMETH 30 ML UNIT-DOSE CUP PO PRN (21:07)
[2020-06-05] MEDS ORDERED: MELATONIN 5 MG TABLETS PO SCH (22:00)
[2020-06-05] MEDS: THIAMINE HCL 100 MG TABLET (FP) PO SCH (22:41)
[2020-06-05] MEDS: LORazepam 2 MG TABLET PO SCH (22:41)
[2020-06-06] MEDS: LORazepam 2 MG TABLET PO SCH ×4 (05:44→22:58)
[2020-06-06] MEDS: PRENATAL VITAMINS W/ FOLIC ACID TABLET (FP) PO SCH (10:07)
[2020-06-06] MEDS ORDERED: NAPHAZOLINE/PHENIRAMINE OPHTHALMIC 15 ML BOTTLE OU PRN (10:25)
[2020-06-06] MEDS ORDERED: LORATADINE 10 MG TABLET PO PRN (10:25)
[2020-06-06 10:51] LABS: HEMATOCRIT 45.5 % (35.4-49); HEMOGLOBIN 15.4 GM/dL (11.7-16.9); MCH 30.4 pg (25.7-33.7); MCHC 33.9 g/dl (32.0-35.9); MEAN CELL VOLUME 89.6 fl (80-96); MEAN PLT VOLUME 8.2 fl (7.5-11.1); PLATELET COUNT 189 K/MM3 (134-434); RBC 5.08 M/mm3 (4.00-5.60); RDW 13.8 % (11.9-15.9); WHITE BLOOD COUNT 3.5 K/mm3 (4.0-10.0)
[2020-06-06] MEDS: metoPROLOL SUCCINATE 25 MG TAB.SR.24H (FP) PO SCH (11:02)
[2020-06-06] MEDS: PANTOPRAZOLE 40 MG TABLET PO SCH (11:02)
[2020-06-06 11:12] LABS: POTASSIUM 4.2 mmol/L (3.5-5.1)
[2020-06-06 11:15] LABS: ALBUMIN 3.9 g/dl (3.4-5.0)
[2020-06-06 11:17] LABS: BLOOD UREA NITROGEN 8.2 mg/dL (7-18); CALCIUM 8.7 mg/dL (8.5-10.1)
[2020-06-06 11:19] LABS: BILIRUBIN,TOTAL 1.8 mg/dL (0.2-1)
[2020-06-06] MEDS ORDERED: SUVOREXANT 10 MG TABLET PO PRN (22:00)
[2020-06-06] MEDS: THIAMINE HCL 100 MG TABLET (FP) PO SCH (22:57)
[2020-06-07] MEDS: LORazepam 1 MG TABLET PO SCH ×2 (06:04→10:36)
[2020-06-07 09:44] VITALS: TEMP 96.2
[2020-06-07] MEDS: metoPROLOL SUCCINATE 25 MG TAB.SR.24H (FP) PO SCH (10:36)
[2020-06-07] MEDS: PANTOPRAZOLE 40 MG TABLET PO SCH (10:36)
[2020-06-07] MEDS: PRENATAL VITAMINS W/ FOLIC ACID TABLET (FP) PO SCH (10:36)
[2020-06-07] MEDS ORDERED: FLU VACCINE (FLULAVAL) PF 60 MCG/0.5 ML SYRINGE 2020-2021 IM ONE (12:00)
[2020-06-07 13:30] VITALS: BP 117/76; PULSE 92
[2020-06-08] MEDS ORDERED: LORazepam 0.5 MG TABLET PO PRN
[2020-06-08] MEDS ORDERED: LORazepam 0.5 MG TABLET PO SCH (05:00)
[2020-06-09] MEDS ORDERED: LORazepam 0.5 MG TABLET PO ONE (05:00)
== END 2020-06-07 15:26 | disposition left against medical advice (07) | DRG 770 ==
LOC: YASAS 18:44 → Y3N 20:42
PROVIDERS: ADMIT Allergy & Immunology; ATTEND Allergy & Immunology
PROC: HZ2ZZZZ Detoxification Services for Substance Abuse Treatment (ICD-10-PCS; principal; 2020-06-05)
DX: F10.230 Alcohol dependence with withdrawal, uncomplicated (principal); F10.282 Alcohol dependence with alcohol-induced sleep disorder; F41.9 Anxiety disorder, unspecified; I10 Essential (primary) hypertension; G62.9 Polyneuropathy, unspecified; K21.9 Gastro-esophageal reflux disease without esophagitis; Z86.79 Personal history of other diseases of the circulatory system; Z86.69 Personal history of other diseases of the nervous system and sense organs; Z87.891 Personal history of nicotine dependence
CPT/HCPCS: 36415; 80053; 85027; 86780; 93005; 93010; C9803; U0003

== ENCOUNTER 2020-07-22 20:23 | Inpatient (IN) | payer OTHER ==
[2020-07-23 00:14] VITALS: BMI 21.4
[2020-07-23] MEDS ORDERED: NICOTINE POLACRILEX 2 MG GUM BUC PRN (01:48)
[2020-07-23] MEDS ORDERED: MAG HYDROX/AL HYDROX/SIMETH 30 ML UNIT-DOSE CUP PO PRN (01:48)
[2020-07-23] MEDS ORDERED: MENTHOL/PHENOL 1 EACH UD MM PRN (01:48)
[2020-07-23] MEDS ORDERED: MAGNESIUM HYDROX 2400MG/30ML ORAL SUSPENSION 30 ML CUP PO PRN (01:48)
[2020-07-23] MEDS ORDERED: LORazepam 1 MG TABLET PO PRN (01:48)
[2020-07-23] MEDS ORDERED: ACETAMINOPHEN 325 MG TABLET (FP) PO PRN ×2 (01:48)
[2020-07-23] MEDS ORDERED: ONDANSETRON *ODT* 4 MG TABLET SL PRN (01:48)
[2020-07-23] MEDS ORDERED: MAGNESIUM CITRATE 300 ML BOTTLE PO PRN (01:48)
[2020-07-23] MEDS ORDERED: BISMUTH SUBSALICYLATE 524 MG/30 ML UD PO PRN (01:48)
[2020-07-23] MEDS ORDERED: chlordiazePOXIDE HCL 25 MG CAPSULE PO PRN (02:08)
[2020-07-23] MEDS ORDERED: LORazepam 2 MG TABLET PO SCH (05:00)
[2020-07-23] MEDS: chlordiazePOXIDE HCL 25 MG CAPSULE PO SCH ×4 (07:53→22:44)
[2020-07-23] MEDS: PRENATAL VITAMINS W/ FOLIC ACID TABLET (FP) PO SCH (11:26)
[2020-07-23] MEDS: NICOTINE 14 MG/24 HOURS TOPICAL PATCH TD SCH (11:30)
[2020-07-23 12:48] LABS: HEMATOCRIT 41.1 % (35.4-49); HEMOGLOBIN 13.8 GM/dL (11.7-16.9); MCH 31.3 pg (25.7-33.7); MCHC 33.6 g/dl (32.0-35.9); MEAN CELL VOLUME 93.1 fl (80-96); MEAN PLT VOLUME 9.1 fl (7.5-11.1); PLATELET COUNT 189 K/MM3 (134-434); RBC 4.41 M/mm3 (4.00-5.60); WHITE BLOOD COUNT 4.2 K/mm3 (4.0-10.0)
[2020-07-23 12:50] LABS: POTASSIUM 3.5 mmol/L (3.5-5.1)
[2020-07-23 13:13] LABS: ALBUMIN 3.7 g/dl (3.4-5.0); CALCIUM 9.2 mg/dL (8.5-10.1)
[2020-07-23 13:18] LABS: BILIRUBIN,TOTAL 7.8 mg/dL (0.2-1); TOT PROT 6.5 g/dl (6.4-8.2)
[2020-07-23] MEDS: metoPROLOL SUCCINATE 25 MG TAB.SR.24H (FP) PO SCH (14:31)
[2020-07-23] MEDS: PANTOPRAZOLE 40 MG TABLET PO SCH (15:16)
[2020-07-23] MEDS ORDERED: MELATONIN 5 MG TABLETS PO SCH (22:00)
[2020-07-23] MEDS: THIAMINE HCL 100 MG TABLET (FP) PO SCH (22:44)
[2020-07-23] MEDS: SUVOREXANT 10 MG TABLET PO PRN (22:45)
[2020-07-24] MEDS ORDERED: LORazepam 1 MG TABLET PO SCH (05:00)
[2020-07-24] MEDS: chlordiazePOXIDE HCL 25 MG CAPSULE PO SCH ×4 (05:31→22:34)
[2020-07-24] MEDS: PRENATAL VITAMINS W/ FOLIC ACID TABLET (FP) PO SCH (10:25)
[2020-07-24] MEDS: PANTOPRAZOLE 40 MG TABLET PO SCH (10:25)
[2020-07-24] MEDS: NICOTINE 14 MG/24 HOURS TOPICAL PATCH TD SCH (10:26)
[2020-07-24] MEDS: metoPROLOL SUCCINATE 25 MG TAB.SR.24H (FP) PO SCH (10:26)
[2020-07-24] MEDS: METHOCARBAMOL 500 MG TABLET PO PRN (10:27)
[2020-07-24] MEDS: IBUPROFEN 400 MG TABLET (FP) PO PRN (10:28)
[2020-07-24] MEDS: SUVOREXANT 10 MG TABLET PO PRN (22:34)
[2020-07-24] MEDS: THIAMINE HCL 100 MG TABLET (FP) PO SCH (22:34)
[2020-07-25] MEDS ORDERED: chlordiazePOXIDE HCL 10 MG CAPSULE PO PRN
[2020-07-25] MEDS ORDERED: LORazepam 0.5 MG TABLET PO PRN
[2020-07-25] MEDS ORDERED: LORazepam 0.5 MG TABLET PO SCH (05:00)
[2020-07-25] MEDS: chlordiazePOXIDE HCL 10 MG CAPSULE PO SCH ×4 (05:41→22:20)
[2020-07-25] MEDS: PANTOPRAZOLE 40 MG TABLET PO SCH (10:34)
[2020-07-25] MEDS: PRENATAL VITAMINS W/ FOLIC ACID TABLET (FP) PO SCH (10:35)
[2020-07-25] MEDS: metoPROLOL SUCCINATE 25 MG TAB.SR.24H (FP) PO SCH (10:35)
[2020-07-25] MEDS: NICOTINE 14 MG/24 HOURS TOPICAL PATCH TD SCH (10:36)
[2020-07-25] MEDS: METHOCARBAMOL 500 MG TABLET PO PRN ×2 (10:36→18:13)
[2020-07-25] MEDS: IBUPROFEN 400 MG TABLET (FP) PO PRN ×2 (10:37→18:13)
[2020-07-25 10:50] LABS: CALCIUM 9.3 mg/dL (8.5-10.1)
[2020-07-25 10:51] LABS: ALBUMIN 3.3 g/dl (3.4-5.0); BLOOD UREA NITROGEN 6.9 mg/dL (7-18)
[2020-07-25 10:55] LABS: BILIRUBIN,TOTAL 1.2 mg/dL (0.2-1)
[2020-07-25 10:56] LABS: TOT PROT 6.3 g/dl (6.4-8.2)
[2020-07-25 10:56] LABS: INR 0.96 (0.83-1.09); PROTHROMBIN TIME (PATIENT) 11.6 SEC (9.7-13.0)
[2020-07-25 11:11] LABS: POTASSIUM 3.8 mmol/L (3.5-5.1)
[2020-07-25] MEDS: LACTULOSE 20 GM/30 ML UDC (FOR ORAL USE ONLY) PO SCH ×2 (12:18→22:20)
[2020-07-25] MEDS: THIAMINE HCL 100 MG TABLET (FP) PO SCH (22:20)
[2020-07-25] MEDS: SUVOREXANT 10 MG TABLET PO PRN (22:24)
[2020-07-26] MEDS ORDERED: LORazepam 0.5 MG TABLET PO ONE (05:00)
[2020-07-26] MEDS: IBUPROFEN 400 MG TABLET (FP) PO PRN ×2 (05:48→17:35)
[2020-07-26] MEDS: METHOCARBAMOL 500 MG TABLET PO PRN ×2 (05:48→22:40)
[2020-07-26] MEDS: chlordiazePOXIDE HCL 10 MG CAPSULE PO SCH ×2 (05:49→17:34)
[2020-07-26] MEDS: PRENATAL VITAMINS W/ FOLIC ACID TABLET (FP) PO SCH (10:17)
[2020-07-26] MEDS: LACTULOSE 20 GM/30 ML UDC (FOR ORAL USE ONLY) PO SCH ×3 (10:17→22:39)
[2020-07-26] MEDS: NICOTINE 14 MG/24 HOURS TOPICAL PATCH TD SCH (10:17)
[2020-07-26] MEDS: PANTOPRAZOLE 40 MG TABLET PO SCH (10:17)
[2020-07-26] MEDS: metoPROLOL SUCCINATE 25 MG TAB.SR.24H (FP) PO SCH (10:17)
[2020-07-26] MEDS ORDERED: MASKS NR ONE (11:21)
[2020-07-26] MEDS: SUVOREXANT 10 MG TABLET PO PRN (21:55)
[2020-07-26] MEDS: THIAMINE HCL 100 MG TABLET (FP) PO SCH (22:38)
[2020-07-27] MEDS ORDERED: chlordiazePOXIDE HCL 10 MG CAPSULE PO ONE (05:00)
[2020-07-27] MEDS: LACTULOSE 20 GM/30 ML UDC (FOR ORAL USE ONLY) PO SCH (06:23)
[2020-07-27] MEDS: METHOCARBAMOL 500 MG TABLET PO PRN (06:26)
[2020-07-27 09:16] VITALS: BP 120/89; PULSE 92; TEMP 97.3
[2020-07-27] MEDS: NICOTINE 14 MG/24 HOURS TOPICAL PATCH TD SCH (09:59)
[2020-07-27] MEDS: metoPROLOL SUCCINATE 25 MG TAB.SR.24H (FP) PO SCH (09:59)
[2020-07-27] MEDS: PANTOPRAZOLE 40 MG TABLET PO SCH (09:59)
[2020-07-27] MEDS: PRENATAL VITAMINS W/ FOLIC ACID TABLET (FP) PO SCH (09:59)
== END 2020-07-27 09:59 | disposition home or self-care (01) | DRG 775 ==
LOC: YASAS 20:23 → Y6N 07-23 02:35
PROVIDERS: ADMIT Allergy & Immunology; ATTEND Allergy & Immunology
PROC: HZ2ZZZZ Detoxification Services for Substance Abuse Treatment (ICD-10-PCS; principal; 2020-07-23)
DX: F10.230 Alcohol dependence with withdrawal, uncomplicated (principal); F12.20 Cannabis dependence, uncomplicated; F17.210 Nicotine dependence, cigarettes, uncomplicated; F19.24 Other psychoactive substance dependence with psychoactive substance-induced mood disorder; F10.280 Alcohol dependence with alcohol-induced anxiety disorder; F10.282 Alcohol dependence with alcohol-induced sleep disorder; F41.9 Anxiety disorder, unspecified; G62.9 Polyneuropathy, unspecified; I10 Essential (primary) hypertension; R79.89 Other specified abnormal findings of blood chemistry; Z86.69 Personal history of other diseases of the nervous system and sense organs; Z86.79 Personal history of other diseases of the circulatory system; Z56.0 Unemployment, unspecified; Z59.0 Homelessness
CPT/HCPCS: 36415; 80053; 82140; 82962; 85027; 85610; 86780; C9803; Q0162; U0003